=== PATIENT | male | born 1950 | race Two or more races ===

== ENCOUNTER 2022-01-26 09:25 | Inpatient (IN) | payer MEDICARE, OTHER ==
[~2022-01-26] VITALS: Ht 167.6 cm; Wt 70.4 kg
[2022-01-26 09:50] LABS: BASOPHILS % 0.3 % (0.0-2.0); EOSINOPHILS % 0.8 % (0.0-5.0); HEMATOCRIT. 45.5 % (42.0-52.0); HEMOGLOBIN. 15.5 g/dL (14.0-18.0); LYMPHOCYTES % 21.3 % (20.0-50.0); MEAN CORPUSCULAR VOLUME 90.9 fL (80.0-94.0); MEAN PLATELET VOLUME 9.3 fl (7.4-10.4); MONOCYTES % 6.4 % (2.0-8.0); NEUTROPHILS % 71.2 % (40.0-76.0); PLATELET 166 x1000/uL (130-400); RED BLOOD CELL COUNT 5.01 mill/uL (4.7-6.1); RED CELL DISTRIBUTION WIDTH 13.2 % (11.6-14.6)
[2022-01-26] MEDS ORDERED: LEVETIRACETAM 1000MG PREMIX 100 ML IV ONE ×2 (10:00→10:30)
[2022-01-26] MEDS ORDERED: LORAZEPAM 2MG/ML CPJ IV ONE (10:00)
[2022-01-26 10:02] LABS: CHLORIDE 106 mEq/L (98-107)
[2022-01-26 10:06] LABS: ETHANOL BLOOD < 10 mg/dL
[2022-01-26] MEDS ORDERED: ASPIRIN 81MG TABLET PO ONE (12:00)
[2022-01-26] MEDS ORDERED: HYDROCODONE/ACETAMINOPHEN 5/325MG TABLET PO PRN (14:15)
[2022-01-26] MEDS ORDERED: MAGNESIUM/ALUMINUM HYDROXIDE/SIMETHICONE 30ML UDC PO PRN (14:15)
[2022-01-26] MEDS ORDERED: DOCUSATE SODIUM 100MG CAPSULE PO PRN (14:15)
[2022-01-26] MEDS ORDERED: IPRATROPIUM/ALBUTEROL 0.5-3(2.5)MG/3ML NEB HHN PRN (14:15)
[2022-01-26] MEDS ORDERED: DIPHENHYDRAMINE 50MG/ML VIAL IV PRN (14:15)
[2022-01-26] MEDS ORDERED: GUAIFENESIN 200MG/10ML SUGAR FREE UDC PO PRN (14:15)
[2022-01-26] MEDS ORDERED: HYDRALAZINE 20MG/ML VIAL IV PRN (14:15)
[2022-01-26] MEDS ORDERED: LORAZEPAM 2MG/ML CPJ IV PRN (14:15)
[2022-01-26] MEDS ORDERED: MORPHINE SULFATE 2 MG/ML CPJ (NOT FOR IM USE) IV PRN (14:15)
[2022-01-26] MEDS ORDERED: ONDANSETRON HCL 4MG/2ML INJ IV PRN (14:15)
[2022-01-26] MEDS ORDERED: ACETAMINOPHEN 325MG TABLET PO PRN (14:15)
[2022-01-26] MEDS ORDERED: CLONIDINE 0.1MG TABLET PO PRN (14:15)
[2022-01-26] MEDS ORDERED: LORAZEPAM 2MG/ML CPJ IV NR (14:30)
[2022-01-26] MEDS: ENOXAPARIN 40MG/0.4ML SYR SUBCUT SCH (14:46)
[2022-01-26 18:24] LABS: CLARITY URINE CLEAR (CLEAR); COLOR URINE YELLOW (YELLOW); KETONES URINE TRACE (NEGATIVE); LEUKOCYTE ESTERASE URINE NEGATIVE (NEGATIVE); NITRITE URINE NEGATIVE (NEGATIVE); OCCULT BLOOD URINE NEGATIVE (NEGATIVE); PROTEIN URINE NEGATIVE (NEGATIVE); SPECIFIC GRAVITY URINE 1.021 (1.005-1.030); UROBILINOGEN URINE 0.2 E.U./dL (0.2-1.0)
[2022-01-26 18:41] LABS: CANNABINOID URINE SCREEN NEGATIVE (NEGATIVE); METHADONE URINE SCREEN NEGATIVE (NEGATIVE); OPIATES URINE SCREEN NEGATIVE (NEGATIVE)
[2022-01-26 18:42] LABS: *AMPHETAMINES SCREEN URINE NEGATIVE (NEGATIVE); *BARBITURATES SCREEN URINE NEGATIVE (NEGATIVE); PHENCYCLIDINE URINE SCREEN NEGATIVE (NEGATIVE)
[2022-01-26 18:44] LABS: *BENZODIAZEPINES SCREEN URINE NEGATIVE (NEGATIVE); *COCAINE SCREEN URINE NEGATIVE (NEGATIVE)
[2022-01-26] MEDS: LEVETIRACETAM 500MG PREMIX 100 ML IV SCH (21:24)
[2022-01-26] MEDS: SODIUM CHLORIDE 0.9% INJ 3ML FLUSH IVF SCH (21:24)
[2022-01-26 23:24] VITALS: BP 139/73
[2022-01-26 23:48] VITALS: BP 139/73
[2022-01-27] VITALS (11 sets, daily range): BP systolic 111–158; BP diastolic 58–102
[2022-01-27] MEDS ORDERED: EZET10TA13 PO (03:38)
[2022-01-27] MEDS ORDERED: FENO130C14 PO (03:38)
[2022-01-27] MEDS ORDERED: KEPP500 PO (03:38)
[2022-01-27] MEDS ORDERED: ATOR80TA PO (03:38)
[2022-01-27] MEDS ORDERED: LACO150T2 PO (03:38)
[2022-01-27] MEDS ORDERED: FERR325T6 PO (03:38)
[2022-01-27] MEDS ORDERED: NATE120T PO (03:38)
[2022-01-27] MEDS ORDERED: SERT25TA74 PO (03:38)
[2022-01-27] MEDS ORDERED: METF-873 PO (03:38)
[2022-01-27] MEDS ORDERED: DAPA5TAB PO (03:38)
[2022-01-27] MEDS ORDERED: DEXTROSE 50% WATER 50ML SYRINGE IV PRN (05:00)
[2022-01-27] MEDS: SODIUM CHLORIDE 0.9% INJ 3ML FLUSH IVF SCH ×3 (05:35→21:56)
[2022-01-27 06:32] LABS: BASOPHILS % 0.1 % (0.0-2.0); EOSINOPHILS % 0.1 % (0.0-5.0); HEMATOCRIT. 46.4 % (42.0-52.0); HEMOGLOBIN. 15.8 g/dL (14.0-18.0); LYMPHOCYTES % 19.7 % (20.0-50.0); MEAN CORPUSCULAR HEMOGLOBIN 30.4 pg (28.0-32.0); MEAN CORPUSCULAR VOLUME 89.6 fL (80.0-94.0); MEAN PLATELET VOLUME 10.8 fl (7.4-10.4); MONOCYTES % 8.9 % (2.0-8.0); NEUTROPHILS % 71.2 % (40.0-76.0); PLATELET 186 x1000/uL (130-400); RED BLOOD CELL COUNT 5.18 mill/uL (4.7-6.1); RED CELL DISTRIBUTION WIDTH 13.2 % (11.6-14.6)
[2022-01-27 06:47] LABS: CHLORIDE 102 mEq/L (98-107)
[2022-01-27 06:48] LABS: CHLORIDE 103 mEq/L (98-107)
[2022-01-27] MEDS: BLOOD SUGAR DIAGNOSTIC STRIP TEST SCH ×4 (07:58→21:00)
[2022-01-27] MEDS: INSULIN LISPRO 100 UNITS/ML SUBCUT SCH ×4 (08:37→21:00)
[2022-01-27] MEDS: LEVETIRACETAM 500MG PREMIX 100 ML IV SCH (11:58)
[2022-01-27] MEDS ORDERED: NON FORMULARY PATIENT HOME MED XX SCH (13:00)
[2022-01-27] MEDS: ENOXAPARIN 40MG/0.4ML SYR SUBCUT SCH (14:13)
[2022-01-27] MEDS: LACOSAMIDE 100 MG TABLET PO SCH ×2 (15:46→21:56)
[2022-01-27] MEDS: LEVETIRACETAM 750 MG in SODIUM CHLORIDE 0.9% 100 ML IV SCH (21:56)
[2022-01-28] VITALS (12 sets, daily range): BP systolic 116–153; BP diastolic 60–98
[2022-01-28] MEDS: SODIUM CHLORIDE 0.9% INJ 3ML FLUSH IVF SCH ×3 (05:07→21:31)
[2022-01-28] MEDS: BLOOD SUGAR DIAGNOSTIC STRIP TEST SCH ×4 (07:30→21:00)
[2022-01-28] MEDS: LEVETIRACETAM 750 MG in SODIUM CHLORIDE 0.9% 100 ML IV SCH (09:20)
[2022-01-28] MEDS: INSULIN LISPRO 100 UNITS/ML SUBCUT SCH ×4 (09:21→21:30)
[2022-01-28] MEDS: LACOSAMIDE 100 MG TABLET PO SCH ×2 (09:21→17:00)
[2022-01-28] MEDS: DEXT 5%/0.45% NACL 1000ML 1,000 ML IV SCH (11:23)
[2022-01-28] MEDS: ENOXAPARIN 40MG/0.4ML SYR SUBCUT SCH (18:20)
[2022-01-28] MEDS ORDERED: NALOXONE HCL 0.4MG/ML VIAL IV PRN (20:30)
[2022-01-28] MEDS: LEVETIRACETAM 500MG TABLET PO SCH (21:31)
[2022-01-29] VITALS (10 sets, daily range): BP systolic 107–140; BP diastolic 44–92
[2022-01-29] MEDS: DEXT 5%/0.45% NACL 1000ML 1,000 ML IV SCH (03:16)
[2022-01-29] MEDS: SODIUM CHLORIDE 0.9% INJ 3ML FLUSH IVF SCH (06:00)
[2022-01-29] MEDS: BLOOD SUGAR DIAGNOSTIC STRIP TEST SCH ×2 (07:30→12:47)
[2022-01-29] MEDS: LEVETIRACETAM 500MG TABLET PO SCH (09:03)
[2022-01-29] MEDS: LACOSAMIDE 100 MG TABLET PO SCH ×2 (09:03→16:30)
[2022-01-29] MEDS: INSULIN LISPRO 100 UNITS/ML SUBCUT SCH ×2 (09:05→16:31)
[2022-01-29] MEDS: ENOXAPARIN 40MG/0.4ML SYR SUBCUT SCH (16:30)
== END 2022-01-29 17:58 | disposition home health service (06) | DRG 101 ==
LOC: ER 09:25 → EDBEDREQ 11:35 → 5EST 11:56 → EDBEDREQ 11:57 → EDBEDREQTM 12:00 → ENRESERV 21:55 → CANBEDREQ 01-27 00:12
PROVIDERS: ADMIT Internal Medicine; ATTEND Internal Medicine
PROC: 4A10X4Z Monitoring of Central Nervous Electrical Activity, External Approach (ICD-10-PCS; principal; 2022-01-29)
DX: G40.109 Localization-related (focal) (partial) symptomatic epilepsy and epileptic syndromes with simple partial seizures, not intractable, without status epilepticus (principal); I69.351 Hemiplegia and hemiparesis following cerebral infarction affecting right dominant side; I10 Essential (primary) hypertension; I25.10 Atherosclerotic heart disease of native coronary artery without angina pectoris; R29.810 Facial weakness; E11.9 Type 2 diabetes mellitus without complications; G93.89 Other specified disorders of brain; I25.2 Old myocardial infarction; Z86.61 Personal history of infections of the central nervous system; Z79.899 Other long term (current) drug therapy; Z79.84 Long term (current) use of oral hypoglycemic drugs
CPT/HCPCS: 36415; 70551; 71045; 80048; 80053; 80305; 80320; 80339; 81003; 82962; 83036; 84443; 84484; 85025; 92610; 93005; 93306; 93970; 95816; 97116; 97162; 97166; 99291; J1650; J1815; J1953; J2060; J7050; G0480